=== PATIENT | male | born 1945 | race Caucasian/White ===

== ENCOUNTER 2016-05-22 14:48 | Inpatient (IN) | payer MEDICARE, OTHER ==
[~2016-05-22] VITALS: Ht 167.6 cm; Wt 85.4 kg
[~2016-05-22 14:48] MED LIST: /PANT40TA PO; CARD90TA PO; DUONSOL IN; GABA400C PO; LANO0.1211 OR; NEUR800T PO; NICO21DI26 EXT; PRED20TA PO; ULTR50TA PO; XARE20TA PO; [UNRECOGNIZED DRUG - OTHER] PO
[2016-05-22] MEDS ORDERED: LEVA12INH INH (15:06)
[2016-05-22] MEDS ORDERED: DELT1TAB PO (15:06)
[2016-05-22] MEDS ORDERED: LASI40TA PO (15:06)
[2016-05-22] MEDS ORDERED: FLEC10TA GT (15:06)
[2016-05-22] MEDS ORDERED: TRAM37.53 PO (15:06)
[2016-05-22] MEDS ORDERED: SPIR50TA2 PO (15:06)
[2016-05-22] MEDS ORDERED: FLEC50TA PO ×3 (15:06→18:25)
[2016-05-22] MEDS ORDERED: PRAD150C PO (15:06)
[2016-05-22] MEDS ORDERED: CEFT500T3 PO (15:06)
[2016-05-22] MEDS ORDERED: K-TA10TA2 PO (15:06)
[2016-05-22 16:32] LABS: BASO # 0.1 K/mm3 (0.0-0.2); BASO % 0.4 % (0.0-1.0); EOS # 0.1 K/mm3 (0.0-0.50); EOS % 0.3 % (0.0-3.0); LARGE UNSTAINED CELL # 0.8 K/mm3 (0.0-0.4); LARGE UNSTAINED CELL % 2.9 % (0.0-4.0); LYMPH # 1.7 K/mm3 (1.5-4.5); LYMPH % 3.1 % (24.0-44.0); MEAN CORPUSCULAR HEMOGLOBIN 31.7 pg (27.0-33.0); MEAN CORPUSCULAR HGB CONC 32.8 g/dl (32.0-36.5); MEAN CORPUSCULAR VOLUME 96.9 fl (80.0-96.0); MONO # 1.3 K/mm3 (0.0-0.8); MONO % 4.5 % (0.0-5.0); NEUTROPHILS # 24.9 K/mm3 (1.8-7.7); NEUTROPHILS % 88.8 % (36.0-66.0); PLATELET COUNT, AUTOMATED 262 k/mm3 (150-450); RED CELL DISTRIBUTION WIDTH 13.3 % (11.5-14.5)
[2016-05-22 16:58] LABS: ANION GAP 6 MEQ/L (8-16); BLOOD UREA NITROGEN 51 MG/DL (7-18); CALCIUM LEVEL 8.6 MG/DL (8.8-10.2); CARBON DIOXIDE LEVEL 27 MEQ/L (21-32); CHLORIDE LEVEL 99 MEQ/L (98-107); CREATININE FOR GFR 1.19 MG/DL (0.70-1.30); GLOMERULAR FILTRATION RATE > 60.0 (>42); GLUCOSE, FASTING 167 MG/DL (83-110); SODIUM LEVEL 132 MEQ/L (136-145)
[2016-05-22 17:06] LABS: POTASSIUM SERUM 6.1 MEQ/L (3.5-5.1)
[2016-05-22] MEDS ORDERED: NS 500 ML IV ONE (17:30)
[2016-05-22] MEDS ORDERED: SOD POLYSTYRENE SULFONATE SUSP 15 GM/60 ML UD PO ONE (17:30)
[2016-05-22] MEDS ORDERED: PRED10TA PO (18:22)
[2016-05-22] MEDS ORDERED: GABA-283 PO (18:22)
[2016-05-22] MEDS ORDERED: VITMTA PO (18:25)
[2016-05-22] MEDS ORDERED: IPRASOL4 INH (18:25)
[2016-05-22] MEDS ORDERED: ASPI1TAB PO (18:25)
--- NOTE | 2016-05-22 19:37 | HPEPDOC ---
General Date of Admission May 22, 2016 at 18:42 Chief Complaint The patient is a 71-year-old male admitted with a reason for visit of Weakness. Source: Patient History of Present Illness Mr Monzon is a 71-year-old male with past medical history of COPD and atrial flutter who presents to the emergency department today with a history of generalized weakness and numbness of both upper and lower extremities that came on acutely 4 days ago, the patient states that this morning he became so weak that he fell down onto his bottom. He denies experiencing LOC, chest pain, palpitations, shortness of breath. He denies being incontinent of urine or bowel during the event, denies history of seizure or stroke in the past. He states that his appetite has been normal, denies fever, muscle aches, chills. He does state that he thinks he's been holding fluid in his legs for the past few days of which she was given Lasix therapy for 2 days ago and has lost some weight as a result. He denies nausea or vomiting, denies diarrhea, constipation , blood in stool or urine, pain with urination or defecation. He follows with Dr. Christine in [place] for his atrial flutter. His flecainide medical therapy was recently increased one week ago. Patient also states that he thinks he had some dark stool 2 days ago. Home Medications Scheduled Aspirin (Aspirin 81) 81 Mg Tab 81 MG PO DAILY (Reported) Cefuroxime Axetil (Ceftin) 500 Mg Tab 500 MG PO BID (Reported) FILLED 05/19/16 FOR 7 DAYS Dabigatran Etexilate (Pradaxa) 150 Mg Cap 150 MG PO BID (Reported) Flecainide Acetate (Flecainide Acetate) 50 Mg Tab 100 MG PO QAM (Reported) Flecainide Acetate (Flecainide Acetate) 50 Mg Tab 150 MG PO QHS (Reported) Furosemide (Lasix) 40 Mg Tab 40 MG PO BID (Reported) Gabapentin (Gabapentin) 400 Mg Cap 800 MG PO TID (Reported) Multivitamins *[facility] STOCKED* (Thera M Plus *[facility] STOCKED*) 1 Tab Tab 1 TAB PO DAILY (Reported) Potassium Chloride (K-Tab) 10 Meq Tab 10 MEQ PO DAILY (Reported) Prednisone (Prednisone) 10 Mg Tab 10 MG PO DAILY (Reported) 2 MORE DAYS OF TAPER DOSE OF 10MG LEFT THEN STOP Spironolactone (Spironolactone) 50 Mg Tab 50 MG PO BID (Reported) Tramadol/Apap (Tramadol Hydrochloride/AC 37.5-325 mg) 1 Tab Tab 1 TAB PO TID ( Reported) Scheduled PRN Albuterol/Ipratropium (Ipratropium [place]/Albut 0.5-2.5 (3) mg/3Ml) 1 Matheus Matheus 1 MATHEUS INH QID PRN PRN SHORTNESS OF BREATH (Reported) Allergies Coded Allergies: No Known Drug Allergy (Verified Allergy, Unknown, 05/22/16) Zolpidem (Verified Adverse Reaction, Intermediate, CONFUSION/SLEEPWALKING , 05/16/12) Past Medical History Medical History COPD Atrial flutter Surgical History Left knee surgery Family History Hypertension, father had heart attack Social History * Smoker: former Smoker (the patient states that he quit smoking 5 years prior , before this he smoked 1.5 packs per day for 40 years) Alcohol: Denies Drugs: denies The patient lives at home with his , 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 Review of Symptoms Constitutional: Reports: Fatigue, Malaise, Weakness, Weight Loss (the pt thinks he lost weight due to the lasix therapy he was recently started on due to b/l leg edema), Denies: Chills, Fever, Night Sweats Eyes: Denies: Conjunctivae inflammation, Eyelid inflammation, Pain, Redness, Vision change ENT: Denies: Head Aches Skin: Denies: Lesions, Rash Pulmonary: Reports: Cough (pt states he does have a cough and sometimes it has yellow tinged sputum), Denies: Dyspnea Cardiovascular: Reports: Edema (+1 b/l LE), Denies: Chest Pain, Lt Headedness, Orthopnea, Palpitations, Paroxysmal Noc. Dyspnea Gastrointestinal: Denies: Abdominal Pain, Constipation, Diarrhea, Nausea, Vomiting Genitourinary: Denies: Dysuria, Frequency Neurological: Reports: Numbness, Weakness, Denies: Change in speech, Incoordination Psych: Reports: Mood Normal Physical Examination General Exam: Positive: Alert, Cooperative, No Acute Distress Eye Exam: Positive: Conjunctiva & lids normal, EOMI, Negative: Ptosis, Sclera icteric ENT Exam: Positive: Atraumatic, Mucous membr. moist/pink, Nares Patent, Pharynx Normal, Tongue Midline, Negative: Pharyngeal Edema Neck Exam: Positive: Supple Chest Exam: Positive: Other (crackles in RUL and RLL), Wheezing (end expiratory wheeze RUL), Negative: Diminished, Rales, Rhonchi Heart Exam: Positive: Normal S1, Normal S2, Other (a flutter), Tachycardic, Negative: Gallops, Murmurs, Rate Normal Telemetry: Positive: Other Telemetry: (a flutter rate 125-132) Abdomen Exam: Positive: Normal bowel sounds, Soft, Negative: BS Hyperactive, BS Hypoactive, Hepatospenomegaly, Tenderness Extremity Exam: Positive: Edema (+1 b/l LE), Normal pulses, Swelling, Negative: Clubbing, Cyanosis, Tenderness Skin Exam: Positive: Nl turgor and temperature Psych Exam: Positive: Mental status NL, Oriented x 3, Negative: Anxiety Vital Signs Vital Signs Date Time Temp Pulse Resp B/P Pulse Ox O2 Delivery O2 Flow Rate FiO2 05/22/16 18:47 97.3 128 16 95 2 05/22/16 17:31 149/92 05/22/16 15:48 Nasal Cannula Laboratory Data Labs 24H Laboratory Tests 2 05/22/16 16:23: Anion Gap 6L, B-Type Natriuretic Peptide 6.0, White Blood Count 28.0H, Red Blood Count 5.07, Hemoglobin 16.1, Hematocrit 49.2, Mean Corpuscular Volume 96.9H, Mean Corpuscular Hemoglobin 31.7, Mean Corpuscular Hemoglobin Concent 32.8, Red Cell Distribution Width 13.3, Platelet Count 262, Neutrophils (%) ( Auto) 88.8H, Lymphocytes (%) (Auto) 3.1L, Monocytes (%) (Auto) 4.5, Eosinophils (%) (Auto) 0.3, Basophils (%) (Auto) 0.4, Neutrophils # (Auto) 24.9H, Lymphocytes # (Auto) 1.7, Monocytes # (Auto) 1.3H, Eosinophils # (Auto) 0.1, Basophils # (Auto) 0.1, Blood Urea Nitrogen 51H, Creatinine 1.19, Sodium Level 132L, Potassium Level 6.1*H, Chloride Level 99, Carbon Dioxide Level 27, Calcium Level 8.6L, Total Creatine Kinase 129, Creatine Kinase MB 4.7H, Creatine Kinase MB Relative Index 3.64, Glomerular Filtration Rate > 60.0, Large Unclassified Cells # 0.8H, Large Unclassified Cells % 2.9, Thyroid Stimulating Hormone (TSH) 1.560, Troponin I < 0.02 CBC/BMP Laboratory Tests 05/22/16 16:23 Calcium Level 8.6 L, Total Creatine Kinase 129, Red Blood Count 5.07, Mean Corpuscular Volume 96.9 H, Mean Corpuscular Hemoglobin 31.7, Mean Corpuscular Hemoglobin Concent 32.8, Red Cell Distribution Width 13.3, Neutrophils (%) (Auto ) 88.8 H, Lymphocytes (%) (Auto) 3.1 L, Monocytes (%) (Auto) 4.5, Eosinophils (% ) (Auto) 0.3, Basophils (%) (Auto) 0.4, Neutrophils # (Auto) 24.9 H, Lymphocytes # (Auto) 1.7, Monocytes # (Auto) 1.3 H, Eosinophils # (Auto) 0.1, Basophils # (Auto) 0.1 Problems (1) COPD (chronic obstructive pulmonary disease) Status: Acute Response to Treatment: Stable Problem Text: will not continue pts home albuterol in light of tachycardia on presentation O2 to titrate >90% continue to monitor o2 saturation at 95 % on 2 L patient wears 2 L O2 at home normally (2) Dehydration Status: Acute Response to Treatment: Stable Problem Text: bun/creatine 51/1.19 will give 20 mg lasix BID for edema in LE and crackles on physical exam continue to monitor (3) Atrial flutter with rapid ventricular response Status: Acute Response to Treatment: Stable Problem Text: 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 scientist head of precision targeting spoken to, recommended d/c flecainide therapy despite rate in 120-130's cardioversion for next week admitted to PCU continue to monitor Repeat ECHO pending last ECHO in 2012 EF was normal first set of troponins negative, will trend (4) Hyperkalemia Status: Acute Response to Treatment: Stable Problem Text: 6.1 on admission 30 of Kayexalate given in ED continue to monitor repeat K at 2000 (5) Weakness Status: Acute Response to Treatment: Stable Problem Text: likely 2/2 dehydration from lasix therapy pt states on exam he still feels weak but is improved since presentation ECHO pending continue to monitor will fluid restrict 2 L in light of possible CHF picture strict I&O's and daily weights for possible CHF picture EKG in ED showed a flutter will admit to telemetry unit and continue to monitor (6) Blood in stool Status: Acute Response to Treatment: Stable Problem Text: stable h/h 16.1/49.2 occult blood pending continue to monitor (7) DVT prophylaxis Status: Acute Problem Text: SCDS and TEDS Plan / VTE VTE Prophylaxis Ordered?: Yes (scds and teds) GME ATTESTATION GME ATTESTATION My preceptor for this patient encounter was physically present in the building during the encounter and was fully available. As needed, all aspects of the patient interview, examination, medical decision making process, and medical care plan development were reviewed and approved by the preceptor. Preceptor is aware and concurs with the plan as stated in the body of this note and will attest to such by his/her cosignature. THOMAS PRADHAN DO May 22, 2016 19:37
[2016-05-22 20:10] LABS: POTASSIUM SERUM 5.7 MEQ/L (3.5-5.1)
[2016-05-23 00:20] VITALS: BP 128/72
[2016-05-23] MEDS: GABAPENTIN 400 MG CAP PO SCH ×4 (00:57→21:03)
[2016-05-23] MEDS: DABIGATRAN ETEXILATE 75 MG CAP (PRADAXA) PO SCH ×3 (00:58→21:02)
[2016-05-23] MEDS: ULTRACET TAB PO SCH ×4 (01:16→21:07)
[2016-05-23 04:19] VITALS: BP 123/70
[2016-05-23 05:46] LABS: BASO # 0.1 K/mm3 (0.0-0.2); BASO % 0.4 % (0.0-1.0); EOS # 0.1 K/mm3 (0.0-0.50); EOS % 0.7 % (0.0-3.0); LARGE UNSTAINED CELL # 0.9 K/mm3 (0.0-0.4); LARGE UNSTAINED CELL % 5.6 % (0.0-4.0); LYMPH # 1.7 K/mm3 (1.5-4.5); LYMPH % 10.4 % (24.0-44.0); MEAN CORPUSCULAR HEMOGLOBIN 31.1 pg (27.0-33.0); MEAN CORPUSCULAR HGB CONC 31.9 g/dl (32.0-36.5); MEAN CORPUSCULAR VOLUME 97.4 fl (80.0-96.0); MONO # 1.1 K/mm3 (0.0-0.8); MONO % 6.4 % (0.0-5.0); NEUTROPHILS # 12.8 K/mm3 (1.8-7.7); NEUTROPHILS % 76.5 % (36.0-66.0); PLATELET COUNT, AUTOMATED 200 k/mm3 (150-450); RED CELL DISTRIBUTION WIDTH 13.4 % (11.5-14.5); WHITE BLOOD COUNT 16.7 K/mm3 (4.0-10.0)
[2016-05-23 06:19] LABS: ANION GAP 5 MEQ/L (8-16); BLOOD UREA NITROGEN 40 MG/DL (7-18); CARBON DIOXIDE LEVEL 28 MEQ/L (21-32); CHLORIDE LEVEL 101 MEQ/L (98-107); CREATININE FOR GFR 0.94 MG/DL (0.70-1.30); GLOMERULAR FILTRATION RATE > 60.0 (>42); GLUCOSE, FASTING 126 MG/DL (83-110); POTASSIUM SERUM 4.7 MEQ/L (3.5-5.1); SODIUM LEVEL 134 MEQ/L (136-145)
[2016-05-23 08:00] VITALS: BP 126/70
--- NOTE | 2016-05-23 08:26 | REP ---
Chest pain. COMPARISON: 04/23/2012 FINDINGS: The technique utilized in obtaining the radiograph has magnified the cardiac silhouette and accentuated the interstitial markings. The superior mediastinal structures are midline. The cardiac silhouette is unremarkable in size, shape, and position. The diaphragmatic surfaces of the lungs are regular, and the costophrenic angles are clear. The pulmonary venegas are clear. The imaged osseous structures are intact. IMPRESSION: There is no acute cardiopulmonary disease. Signed by Levy Garner DO 05/23/2016 08:51 A
[2016-05-23] MEDS ORDERED: predniSONE 10 MG TAB PO SCH (09:00)
--- NOTE | 2016-05-23 09:21 | ECGEPIP ---
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
[2016-05-23] MEDS: FUROSEMIDE 20 MG TAB PO SCH ×2 (09:56→17:12)
[2016-05-23] MEDS: ASPIRIN 81 MG ENTERIC TAB PO SCH (09:56)
[2016-05-23] MEDS ORDERED: LEVALBUTEROL 1.25 MG/0.5 ML CONCENTRATE NEB INH PRN (11:00)
[2016-05-23 12:00] VITALS: BP 128/77
[2016-05-23] MEDS ORDERED: DIGOXIN INJ 0.5 MG/2 ML AMP (J1160) IV SCH (12:00)
[2016-05-23] MEDS: BISOPROLOL FUM 2.5 MG PER 1/2TAB PO SCH ×2 (12:26→21:03)
[2016-05-23] MEDS: predniSONE 20 MG TAB PO SCH (12:27)
[2016-05-23 16:00] VITALS: BP 149/65
[2016-05-23 20:00] VITALS: BP 119/67
[2016-05-23] MEDS ORDERED: SLF 3 ML SYR IV PRN (21:15)
[2016-05-23] MEDS: SLF 3 ML SYR IV SCH (22:00)
[2016-05-24] VITALS (10 sets, daily range): BP systolic 92–146; BP diastolic 60–81
[2016-05-24 05:53] LABS: BASO # 0.1 K/mm3 (0.0-0.2); BASO % 0.3 % (0.0-1.0); EOS # 0.1 K/mm3 (0.0-0.50); EOS % 0.3 % (0.0-3.0); LARGE UNSTAINED CELL # 0.7 K/mm3 (0.0-0.4); LARGE UNSTAINED CELL % 2.5 % (0.0-4.0); LYMPH # 2.7 K/mm3 (1.5-4.5); LYMPH % 7.9 % (24.0-44.0); MEAN CORPUSCULAR HGB CONC 33.1 g/dl (32.0-36.5); MEAN CORPUSCULAR VOLUME 96.7 fl (80.0-96.0); MONO # 1.4 K/mm3 (0.0-0.8); MONO % 5.4 % (0.0-5.0); NEUTROPHILS # 21.9 K/mm3 (1.8-7.7); NEUTROPHILS % 83.6 % (36.0-66.0); PLATELET COUNT, AUTOMATED 255 k/mm3 (150-450); RED CELL DISTRIBUTION WIDTH 13.2 % (11.5-14.5); WHITE BLOOD COUNT 26.2 K/mm3 (4.0-10.0)
[2016-05-24] MEDS: SLF 3 ML SYR IV SCH ×4 (06:00→21:06)
[2016-05-24 06:19] LABS: ANION GAP 3 MEQ/L (8-16); BLOOD UREA NITROGEN 38 MG/DL (7-18); CALCIUM LEVEL 8.9 MG/DL (8.8-10.2); CARBON DIOXIDE LEVEL 33 MEQ/L (21-32); CHLORIDE LEVEL 100 MEQ/L (98-107); CREATININE FOR GFR 0.95 MG/DL (0.70-1.30); GLOMERULAR FILTRATION RATE > 60.0 (>42); GLUCOSE, FASTING 138 MG/DL (83-110); POTASSIUM SERUM 4.9 MEQ/L (3.5-5.1); SODIUM LEVEL 136 MEQ/L (136-145)
[2016-05-24] MEDS: FUROSEMIDE 20 MG TAB PO SCH ×2 (09:21→17:42)
[2016-05-24] MEDS: GABAPENTIN 400 MG CAP PO SCH ×3 (09:21→21:04)
[2016-05-24] MEDS: ASPIRIN 81 MG ENTERIC TAB PO SCH (09:21)
[2016-05-24] MEDS: BISOPROLOL FUM 2.5 MG PER 1/2TAB PO SCH ×2 (09:21→21:05)
[2016-05-24] MEDS: predniSONE 20 MG TAB PO SCH (09:22)
[2016-05-24] MEDS: DABIGATRAN ETEXILATE 75 MG CAP (PRADAXA) PO SCH ×2 (09:22→21:05)
[2016-05-24] MEDS: ULTRACET TAB PO SCH ×3 (09:33→21:06)
[2016-05-24] MEDS ORDERED: LIDOCAINE 2% INJ 100 MG/5 ML SYRINGE As Ordered ONE (13:03)
[2016-05-24] MEDS ORDERED: PROPOFOL 200 MG/20 ML VIAL As Ordered ONE (13:03)
--- NOTE | 2016-05-24 14:22 | RO ---
DATE OF PROCEDURE: 05/24/2016 INDICATION/PREPROCEDURE DIAGNOSIS: Typical atrial flutter. POSTPROCEDURE DIAGNOSIS: Sinus tachycardia. PROCEDURE PERFORMED: Electrical cardioversion 150 joules times one. SURGEON: Dr. Emmanuel Martinez TAR CHASER: None. ANESTHESIA: Monitored anesthesia care administered by CHUY Link (Propofol). COMPLICATIONS: None. FINDINGS: Successful cardioversion with pentecostalism of sinus tachycardia with 150 joules times one. PROCEDURE DESCRIPTION: After receiving adequate amounts of sedation per anesthesia, the patient received a single 150 joule biphasic cardioversion shock, which successfully returned sinus mechanism with sinus tachycardia. No excessive pauses were observed with the conversion. The paced/defibrillation patches were applied in reverse polarity at the start of the procedure, such that the sternal patch was placed over the left posterior hemithorax and apical patch was placed over the sternum. cc: Dr. Emmanuel Richadrson Emmett Dr. Emmanuel Lainez
--- NOTE | 2016-05-24 20:40 | IPN ---
DATE OF VISIT: 05/23/2016 Mr. Monzon is feeling better today. He has still been tachycardic overnight but he has no sensation of his heart beating quickly. He has been up and walking around actually, which he was unable to do prior to his arrival. He is tolerating diet. Family is at bedside including two daughters and a son-in-law. PHYSICAL EXAMINATION: VITAL SIGNS: Temperature 97.2, pulse 71, respirations 18, blood pressure 126/70, 96% on room air. Intake and output notable for a positive fluid balance of 1220 with 85.2 kg, body mass index is 30.3. GENERAL: He is awake, appropriately interactive, pleasantly conversant, speaking in complete sentences. No accessory muscle use. HEART: Rapid rhythm, regular rate. LUNGS: Breathing is symmetrically diminished. Inspiratory to expiratory (I:E) ratio is 1:3. There are no wheezes, rales or rhonchi. ABDOMEN: No sacral edema. Abdomen is soft, doughy and nontender. EXTREMITIES: There is 1+ bilateral lower extremity edema. Radial pulses 2+. Capillary refill is less than two seconds. LABORATORY DATA: White cell count 16.7, hemoglobin 15.2, platelets of 200. Sodium 134, BUN 40, creatinine 0.9, troponin negative times two. ASSESSMENT: This is a 71-year-old with atrial fibrillation and rapid ventricular rate (RVR). PLAN: 1. Atrial fibrillation with RVR. The case was again discussed in general with covering riveter. We will start a low dose of cardiac selective beta ro and digoxin. We will plan to followup with Dr. Christine tomorrow. 2. The patient has chronic pulmonary obstructive disease (COPD). Did receive a high dose of steroid yesterday. Will continue with increased dose of steroids today as he did recover quickly without any real change in heart rate. He is not actively wheezing and believe beta ro is reasonably safe. At this point will also make available to him low dose of Xopenex which perhaps is more respiratory selective. 3. Dehydration with decreased dose of Lasix. At this point I believe fluid build-up in his lower extremities is most likely related to increased rate on exam. He is improved today. Will continue to monitor clinically. 4. Patient has hyperkalemia at presentation which has resolved with Kayexalate and improving renal function. 5. The patient had weakness at presentation which has resolved. I have requested the patient not be too active but I have given him permission to get to the bathroom or to a chair with assistance. I certainly do not want him walking in the hallway. 6. The patient has Heme occult positive stool. 7. The patient has appropriate deep venous thrombosis (DVT) prophylaxis which is mechanical and noted during my exam.
--- NOTE | 2016-05-24 20:50 | IPN ---
DATE: 05/24/2016 Mr. Monzon was feeling about the same this morning. No complaints of pain, chest pain, or particularly short of breath. He has been out of bed. He did request nebulizer therapy this morning. Temperature 97.6, pulse 150, respiratory rate 18, blood pressure 110/68, 96% on 2 liters. Intake and output notable for a positive fluid balance of 90. He is awake, appropriately interactive, pleasantly conversant. Breathing is symmetrical, diminished. Heart is tachycardic. Radial pulses 2+, capillary refill is less than 2 seconds. Abdomen is soft, doughy, nontender. He generally appears well. White cell count is 26.2, hemoglobin 15.2, and platelets of 255. Sodium is 136, BUN 38, creatinine 0.95. Stool occult blood (cut off). ASSESSMENT: This is a 71-year-old admitted with what is likely a chronic obstructive pulmonary disease (COPD) exacerbation, acute, in the setting of atrial fibrillation and rapid ventricular response (RVR), which is chronic. PLAN: 1. For COPD, the patient is much improved from that standpoint. Breathing is much easier. He is on a short course of steroids, which will need to be tapered. 2. Patient presented with dehydration, which has improved as well. 3. Patient has atrial flutter with rapid ventricular response. Plan is for cardioversion today, as he had failed outpatient therapy. Dr. Martinez has agreed to cardiovert the patient. Dr. Christine requested a repeat echocardiogram, which has been ordered. 4. Patient has leukocytosis, which could be made worse with the use of steroids, but he is having multiple stools. Will send stool for Clostridium (C) difficile. On physical exam, the patient appears quite well. Hemoccult is positive. He does not seem to have melena. 5. Patient had hyperkalemia at the time presentation, which has resolved. 6. Patient has appropriate mechanical deep vein thrombosis (DVT) prophylaxis and is also on Pradaxa. I would anticipate discharge in the next 24 hours, after we verify the patient remains in sinus rhythm after his cardioversion.
[2016-05-25 04:31] VITALS: BP 120/65
[2016-05-25 05:28] LABS: BASO % 0.3 % (0.0-1.0); EOS # 0.1 K/mm3 (0.0-0.50); EOS % 0.5 % (0.0-3.0); LARGE UNSTAINED CELL # 0.6 K/mm3 (0.0-0.4); LARGE UNSTAINED CELL % 3.3 % (0.0-4.0); LYMPH # 2.9 K/mm3 (1.5-4.5); LYMPH % 13.3 % (24.0-44.0); MEAN CORPUSCULAR HEMOGLOBIN 31.5 pg (27.0-33.0); MEAN CORPUSCULAR VOLUME 95.6 fl (80.0-96.0); MONO # 1.1 K/mm3 (0.0-0.8); MONO % 6.2 % (0.0-5.0); NEUTROPHILS # 13.4 K/mm3 (1.8-7.7); NEUTROPHILS % 76.4 % (36.0-66.0); PLATELET COUNT, AUTOMATED 243 k/mm3 (150-450); RED CELL DISTRIBUTION WIDTH 13.3 % (11.5-14.5); WHITE BLOOD COUNT 17.5 K/mm3 (4.0-10.0)
[2016-05-25 05:42] LABS: ANION GAP 4 MEQ/L (8-16); BLOOD UREA NITROGEN 41 MG/DL (7-18); CARBON DIOXIDE LEVEL 32 MEQ/L (21-32); CHLORIDE LEVEL 99 MEQ/L (98-107); CREATININE FOR GFR 1.01 MG/DL (0.70-1.30); GLOMERULAR FILTRATION RATE > 60.0 (>42); GLUCOSE, FASTING 105 MG/DL (83-110); POTASSIUM SERUM 4.7 MEQ/L (3.5-5.1); SODIUM LEVEL 135 MEQ/L (136-145)
[2016-05-25] MEDS: SLF 3 ML SYR IV SCH (06:00)
[2016-05-25 08:00] VITALS: BP 134/72
[2016-05-25] MEDS ORDERED: IPRATROPIUM 0.02% SOLN 0.5MG/2.5 ML NEB INH SCH (08:00)
[2016-05-25] MEDS ORDERED: LEVALBUTEROL 1.25 MG/0.5 ML CONCENTRATE NEB INH SCH (08:00)
[2016-05-25 08:21] VITALS: BP 120/65
[2016-05-25] MEDS: predniSONE 20 MG TAB PO SCH (08:21)
[2016-05-25] MEDS: BISOPROLOL FUM 2.5 MG PER 1/2TAB PO SCH (08:21)
[2016-05-25] MEDS: ASPIRIN 81 MG ENTERIC TAB PO SCH (08:21)
[2016-05-25] MEDS: GABAPENTIN 400 MG CAP PO SCH (08:22)
[2016-05-25] MEDS: DABIGATRAN ETEXILATE 75 MG CAP (PRADAXA) PO SCH (08:22)
[2016-05-25] MEDS: ULTRACET TAB PO SCH (08:27)
[2016-05-25 08:35] VITALS: O2SAT 96
[2016-05-25] MEDS ORDERED: PRED10TA PO (08:36)
[2016-05-25] MEDS ORDERED: BISO5TAB5 PO (08:36)
[2016-05-25] MEDS ORDERED: FURO20TA2 PO (08:36)
--- NOTE | 2016-05-25 08:39 | ECGEPIP ---
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
[2016-05-25 08:57] VITALS: O2SAT 94
[2016-05-25] MEDS ORDERED: FUROSEMIDE 20 MG TAB PO SCH (09:00)
--- NOTE | 2016-05-25 18:40 | IPN ---
DATE: 05/25/2016 Mr. Zach Monzon was seen earlier this morning, he was sitting up in bed in no acute distress at rest. He is hospitalist was at bed side. He was initially seen by Dr. Martinez after his admission on 05/22/2016 with shortness of breath, generalized weakness, atrial flutter with rapid ventricular rate. He was mechanically cardioverted on 05/24/[address] Martinez and he remains in normal sinus rhythm. He is now feeling much better, and his shortness of breath has improved significantly. He is getting some of his strength back. He is looking forward to go back to work maybe within 1-2 weeks. He denies any chest pain, palpitations, orthopnea or paroxysmal nocturnal dyspnea (PND). He denies any bleeding. He denies any dizziness. He has a cough but no hemoptysis or fever. There is no focal manifestation. PHYSICAL EXAMINATION: Patient is alert and oriented, in no acute distress at rest and his vital signs when I saw him earlier today reveal a blood pressure of 134/72 with a pulse of 94, respirations 18 and his maximum temperature was 96.7 degrees Fahrenheit with an oxygen saturation of 94% in room air. Examination of the head is normocephalic, atraumatic. Neck is supple, no jugular venous distention or carotid bruits. The lungs do not reveal any wheezing or crackles but prolonged expiratory phase. The heart examination reveals normal S1 and S2 without gallops. The PMI is not displaced. There is no rub. I could not appreciate any murmurs. Abdomen is soft, obese and non-tender. Extremities reveal only trace bilateral ankle edema. No cyanosis or clubbing. Neurological examination grossly is negative for focal deficit. LABORATORY DATA: A CBC done today revealed a WBC of 17.5 and on admission it was 28.0. Hemoglobin is 14.2, hematocrit 42.9, and platelet 2423,000. BMP done today reveals a sodium of 135, potassium 4.7, chloride 99, CO2 22, BUN 41, creatinine 1.01, glomerular filtration rate (GFR) more than 60. Fasting glucose 105 and calcium 8.8. Telemetry revealed normal sinus rhythm. Electrocardiogram done yesterday 05/24/2016 at 14:02:31 revealed normal rhythm, tachycardiac at 110 beats per minute, <<3:10>> complexes. Prior electrocardiogram (ECG) done 05/22/2016, patient was in atrial flutter. Chest x-ray on admission 05/22/2016 revealed no acute disease process. Mr. Zach Monzon is stable from a cardiac point of view, status post mechanical cardioversion for atrial flutter and he remains in normal sinus rhythm. He is also status post hyperkalemic probably most likely medication induced. His medications were reviewed and he will be discharged on the same medications, but his furosemide was decreased to 20 mg by mouth daily. This was discussed with his hospitalist and patient will come to the office in about 1-2 weeks and an appointment will be made for him. He will also follow with his primary physician later this week. I am concerned about the newly started beta ro/Zebeta in the presence of severe underlying chronic obstructive pulmonary disease/emphysema, he will be monitored and we will see how he reacts. He is no longer on the Cardizem and also is no longer on the spironolactone because that was a contributing factor to his hyperkalemia. He is also no longer on the flecainide. We have discussed about further treatment for his atrial flutter such as ablation and at this time, he wants to think about it. We will continue to discuss that as outpatient. Upon discharge, his medications, he is on furosemide 20 mg by mouth daily, gabapentin 800 mg by mouth three times a day, dabigatran/Pradaxa 150 mg by mouth twice a day, bisoprolol/Zebeta 2.5 mg by mouth twice a day, Prednisone 40 mg by mouth daily, aspirin 81 mg by mouth daily, Xopenex 0.63 mg four times a day per inhalation as needed for shortness of breath and wheezing, Atrovent 0.02% 0.5 mg every 6 hours. It was a pleasure to participate in the care of Mr. Zach Monzon for his underlying cardiac condition. As mentioned above, he has been stable and he may be discharged home for follow up as outpatient. Not mentioned above, he had an echocardiogram yesterday and it revealed a normal globular left ventricular function, no significant valvular heart disease.
--- NOTE | 2016-05-27 08:34 | DSES ---
DATE OF ADMISSION: 05/22/2016 DATE OF DISCHARGE: 05/25/2016 PRIMARY CARE PROVIDER: Dr. Khari Keenan. NAIL MACHINE OPERATOR: Dr. Christine. DISCHARGE DIAGNOSES: Atrial flutter status post mechanical cardioversion Status post hyperkalemia which was thought the be medication and dehydration induced. Dehydration. Chronic obstructive pulmonary disease (COPD) exacerbation. Acute respiratory failure with hypoxia which has resolved. Metabolic syndrome with peripheral neuropathy. Chronic low back pain. Steroid induced leukocytosis. DISCHARGE MEDICATIONS: - bisoprolol 2.5 mg by mouth twice daily - Lasix 20 mg by mouth daily - prednisone tapering course - albuterol ipratropium nebulizer solution one solution four times daily as needed - aspirin 81 mg daily - Pradaxa 150 mg by mouth twice daily - gabapentin 800 mg by mouth three times daily - multivitamins one tablet daily - tramadol/acetaminophen 37.5/325 one tablet by mouth three times daily HOSPITAL COURSE: This is a 71-year-old male who presented to the hospital with severe generalized weakness and numbness of both the upper and lower extremities for about 3-4 days and inability to ambulate on the day of admission and fall on his bottom. Patient was diagnosed with atrial flutter for about 3 weeks ago and was started on flecainide. The flecainide dosage was increased a week ago after which patient started feeling weak and so came into the hospital on the day of admission status post fall and inability to ambulate. Patient was found to be hypokalemic with a potassium of 6.1 also. Patient was found to be in persistent atrial flutter. He was also thought to be dehydrated. Patient's diuretics were stopped. Flecainide and spironolactone were stopped as his hyperkalemia was thought to be related to medication. Patient started feeling a little better. Subsequently patient went underwent mechanical cardioversion on 05/24/2016 with resolution of most of his symptoms. He was also though to have mild chronic obstructive pulmonary disease (COPD) exacerbation and acute respiratory failure with hypoxia so was continued on intermittent nebulizers and prednisone. After cardioversion, patient's oxygen requirement decreased and he started feeling significantly better. He was not hypoxic at rest. On the day of admission, he was ambulated and it was seen that his oxygen saturation did not drop. His oxygen saturation at rest was 96% on room air and after ambulation, it was 94% on room air so it was felt that his hypoxia and acute respiratory failure has resolved and patient does not require any further home oxygen. Patient was instructed about the same. Patient does have home oxygen given to him from [facility] about a week ago when he was discharged from there. At present, the patient is feeling much better. Vitals are stable and patient is functioning at his baseline and is going to be discharged home. PHYSICAL EXAMINATION: Vital signs: Temperature 96.7, pulse 89, respiratory rate 20, blood pressure 120/65, pulse oximetry 94% on room air. General: Patient awake, alert, oriented times three. Sitting up in bed in no acute distress. HEENT: Normocephalic, atraumatic. Moist mucous membranes. Anicteric eyes. Chest: Mild wheezing on auscultation but good air entry. Cardiovascular: S1, S2. Irregular. No rub, murmur or gallop. Abdomen: Obese, soft, nontender. Bowel sounds present. Extremities: No edema. LABORATORY DATA: WBC 17.5, hemoglobin 14.2, platelets 243. Sodium 135, potassium 4.7, chloride 99, bicarbonate 32, BUN 41, creatinine 1. Glucose 105, calcium 8. Cardiac enzymes negative. BNP was 6. TSH 1.56. Chest x-ray: There was no acute pulmonary disease. DISPOSITION: Patient is discharged home in stable condition. DISCHARGE INSTRUCTIONS: Patient is to followup with Dr. Christine in 1-2 weeks. Patient to followup with primary care provider in 1 week. Activity as tolerated. Carbohydrate consistent diet. MTDD
--- NOTE | 2016-05-27 19:41 | ECHO ---
DATE OF PROCEDURE: 05/24/2016 REFERRING PROVIDER: Dr. Emmanuel Lainez PATIENT LOCATION: Room 3215. REASON FOR THE ECHOCARDIOGRAM: Shortness of breath, pedal edema, atrial flutter. 2D MEASUREMENTS: IVS: 1.4 cm LV: 3.1 cm LVPW: 1.3 cm LA: 3.6 cm Aorta: 3.1 cm IVC: 1.26 cm DOPPLER MEASUREMENTS: Peak velocity across the aortic valve: 1.1 m/s Peak velocity across the LVOT: 0.8 m/s Mitral E: 0.82 Mitral A: 1.1 with a ratio of 0.7 Maximum tricuspid valve velocity: 2.1 m/s 2D COMMENTS: 1. Mildly increased left ventricular wall thickness with normal left ventricular size and a normal global left ventricular systolic function estimated 65-70%. 2. Both the left atrium and the right atrium appeared to be normal in size. The right ventricle was normal in size and function. 3. The atrial septum appeared to be normal without evidence of defect or shunt. 4. Normal aortic root. 5. Trace to small pericardial effusion noted mainly anteriorly; no evidence of cardiac tamponade. 6. Mildly calcified aortic valve with normal leaflet excursion. Mildly calcified mitral annulus with normal anterior mitral valve leaflet motion. Normal tricuspid valve. The pulmonic valve and proximal pulmonary artery branches were not well visualized. 7. The inferior venal cava was normal in size; central venous pressure is most likely normal. DOPPLER: It detects trace aortic regurgitation, mild mitral regurgitation, and mild tricuspid regurgitation. The calculated pulmonary artery systolic pressure was normal, less than 30 mmHg. Abnormal relaxation pattern was noted across the mitral valve leaflets as well as the mitral valve annulus, consistent with a delayed relaxation. IMPRESSION: 1. Normal global left ventricular systolic function with mild concentric left ventricular hypertrophy. There were features of left ventricular diastolic dysfunction, grade 1. 2. Aortic valve sclerosis with trace aortic regurgitation but no aortic stenosis. 3. Mitral annulus calcification with mild mitral regurgitation. 4. Mild tricuspid regurgitation with a normal calculated pulmonary artery systolic pressure. 5. Trace to small pericardial effusion noted; no evidence of cardiac tamponade.
== END 2016-05-25 10:22 | disposition home or self-care (01) | DRG 309 ==
LOC: M ED 15:34 → M ED INP 18:42 → M PCU 05-23 00:25
PROVIDERS: ADMIT Internal Medicine; ATTEND Internal Medicine Nephrology
PROC: 5A2204Z Restoration of Cardiac Rhythm, Single (ICD-10-PCS; principal; 2016-05-24 13:00)
DX: I48.3 Typical atrial flutter (principal); J44.1 Chronic obstructive pulmonary disease with (acute) exacerbation; I48.2 Chronic atrial fibrillation; E86.0 Dehydration; M54.5 Low back pain; E87.5 Hyperkalemia; R53.1 Weakness; E66.9 Obesity, unspecified; Z79.82 Long term (current) use of aspirin; Z79.52 Long term (current) use of systemic steroids; Z79.899 Other long term (current) drug therapy; Z87.891 Personal history of nicotine dependence; Z68.30 Body mass index [BMI] 30.0-30.9, adult

== ENCOUNTER 2016-06-10 18:43 | Inpatient (IN) | payer MEDICARE, OTHER ==
[~2016-06-10] VITALS: Ht 170.2 cm; Wt 90.8 kg
[2016-06-10] VITALS (27 sets, daily range): BP systolic 96–135; BP diastolic 57–84
[~2016-06-10 18:43] MED LIST changes: +ASPI1TAB PO; +BISO5TAB5 PO; +CEFT500T3 PO; +DELT1TAB PO; +FLEC10TA GT; +FLEC50TA PO; +FURO20TA2 PO; +GABA-283 PO; +IPRASOL4 INH; +K-TA10TA2 PO; +LASI40TA PO; +LEVA12INH INH; +PRAD150C PO; +PRED10TA PO; +SPIR50TA2 PO; +TRAM37.53 PO; +VITMTA PO
[2016-06-10] MEDS ORDERED: AMIODARONE HCL 150 MG in APPROPRIATE DILUENT 1 EA IV STA (20:35)
[2016-06-10] MEDS ORDERED: AMIODARONE HCL 150 MG/100 ML PREMIXED BAG (NEXTERONE) As Ordered ONE (20:37)
[2016-06-10] MEDS ORDERED: LIDOCAINE 2% INJ 100 MG/5 ML SDV (FOR ANES.) As Ordered ONE (21:07)
[2016-06-10] MEDS ORDERED: PROPOFOL 200 MG/20 ML VIAL As Ordered ONE (21:07)
[2016-06-10] MEDS ORDERED: SUCCINYLCHOLINE 100 MG/5 ML SYRINGE (J0330) As Ordered ONE (21:07)
[2016-06-10] MEDS ORDERED: SUCCINYLCHOLINE INJ 200 MG/10 ML VIAL (J0330) As Ordered ONE (21:13)
[2016-06-10] MEDS ORDERED: LIDOCAINE 2% MDV 20 ML VIAL As Ordered ONE (21:13)
[2016-06-10] MEDS ORDERED: BISACODYL 5 MG TAB PO PRN (22:00)
[2016-06-10] MEDS ORDERED: PERCOCET 5MG/325MG TAB PO PRN (22:00)
[2016-06-10] MEDS ORDERED: ONDANSETRON 4MG/2ML VIAL (J2405) IV PRN (22:00)
[2016-06-10] MEDS ORDERED: ACETAMINOPHEN TAB 650MG DOSE (2X325MG) PO PRN (22:00)
[2016-06-10] MEDS ORDERED: AMIODARONE HCL 150 MG in APPROPRIATE DILUENT 1 EA IV ONE ×2 (22:15→23:00)
[2016-06-10] MEDS ORDERED: predniSONE 10 MG TAB PO SCH (22:15)
[2016-06-10] MEDS ORDERED: FUROSEMIDE 20 MG/2 ML VIAL (J1940) IV ONE (23:00)
--- NOTE | 2016-06-10 23:06 | CR ---
DATE OF CONSULTATION: 06/10/2016 REFERRING PROVIDER: Blas Lynch MD REASON FOR CONSULTATION: Atrial fibrillation with a rapid ventricular rate. HISTORY OF PRESENT ILLNESS: 71-year-old male with a history of paroxysmal atrial fibrillation and he was recently mechanically cardioverted here by Dr. Martinez on 05/24/2016, and he has been taking bisoprolol and he is on Pradaxa. He was doing well and he was seen in the office on 06/03/2016, and at that time he was in normal sinus rhythm. He called the office earlier today complaining of lightheadedness and dizziness, increasing shortness of breath. He was told to come to the office and upon arrival, his EKG revealed atrial flutter with 2:1 atrioventricular (AV) block and a ventricular rate of 150 beats per minute. He was hypotensive with a blood pressure that varied in the office between 80-90 mmHg systolic. He was transferred to the emergency room (ER) in [place] and received IV fluids but his blood pressure remained low and at 90 beats per minute. He was not able to receive any medication there and there was no anesthesiologist available at that time for cardioversion. He was transferred to [facility] in [place], [place] and he was mechanically cardioverted this evening with 200 joules of biphasic shock. There was no complications. When I saw him this evening in the intensive care unit/critical care unit (ICU/CCU), he was sitting up in bed with shortness of breath but denies any chest pain or palpitations. He was not having any dizziness. In the hospital, his blood pressure was about 110-115 mmHg systolic, but in the process between [facility] and upon arrival here, he had received more than 1 liter of normal saline. He denies any bleeding. He takes his medication regularly. He has been taking the furosemide daily instead of every other day. His labs revealed a normal serum potassium. He has no focal manifestations. He has no nausea, vomiting, diarrhea, melena, or hematemesis. There is no dysuria, polyuria, or hematuria. He has a cough but no hemoptysis. He denies any fever or chills. He has a past medical history positive for paroxysmal atrial flutter, hypertension, chronic obstructive pulmonary disease (COPD), arthritis, obesity, and syncopal episode years ago with negative cardiac workup. There is no history of noncoronary artery disease, significant valvular heart disease, cardiomyopathy, CVA, sudden cardiac . There is no history of hyperlipidemia, diabetes mellitus, kidney disease, thyroid disorders. Past surgical history is positive for left knee replacement, otherwise unremarkable. MEDICATIONS: Prior to coming to the hospital are: - bisoprolol 5 mg tablets one and a half tablets by mouth twice a day - furosemide 20 mg tablet every other day - gabapentin 400 mg by mouth three times a day - Pradaxa 150 mg by mouth twice a day - tramadol 50 mg tablets three times daily as needed for pain SOCIAL HISTORY: Patient lives with his and he is very active. 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 He is a former smoker, he had stopped years ago. He denies any ethyl alcohol (EtOH) abuse. ALLERGIES: He has history of allergies to XARELTO. ADVANCED DIRECTIVES: Patient is a FULL CODE. PHYSICAL EXAMINATION: Patient is alert and oriented, in no acute distress at rest. His last vital signs reveal a blood pressure of 115/75, with a pulse of 89, respirations 18-20. Examination of the head is normocephalic, atraumatic. Neck is supple, I could not appreciate any jugular venous distention (JVD) or carotid bruits. The lungs did not reveal any wheezing or crackles but prolonged expiratory phase. The heart examination revealed irregularly irregular heart sounds without gallops. The point of maximum impulse (PMI) is not displaced. There is no rub. I could not appreciate any murmurs. The abdomen is soft, protuberant and nontender. Bowel sounds are active. Extremities revealed trace to +1 bilateral lower leg edema. Neurologic examination grossly is negative for focal deficit. LABORATORY DATA: CBC revealed a WBC of 8.2, hemoglobin 11.7, hematocrit 35.6, and platelets 181,000. PT is 14.3 with an INR of 1.42 and a PTT of 37.0. BMP revealed a sodium of 139, potassium 4.0, chloride 103, CO2 32, BUN 18, creatinine 1.25, GFR more than 60, glucose 109, calcium 8.7, total bilirubin 0.4, AST 32, ALT 52, alkaline phosphatase 45, total protein 6.2, albumin 2.8. Serum proBNP is 8000. Serum troponin is 0.08. EKG prior to coming to the hospital revealed atrial flutter at a rate of 150 beats per minute and nonspecific ST-T abnormalities. Repeated echocardiogram after the mechanical cardioversion revealed normal sinus rhythm at 90 beats per minute. IMPRESSION: 71-year-old male with history of symptomatic paroxysmal atrial flutter that usually requires mechanical cardioversion was admitted directly from [facility] today after stopping at the office with atrial flutter with a rapid ventricular rate and low blood pressure. The immediate plan was to proceed with mechanical cardioversion and this was done successfully with a 200 joules shock. Prior to that, 150 mg of IV amiodarone was given in the emergency room (ER) without any response. He will continue his outpatient medications and the Lasix will change to IV Lasix. He has a normal left ventricular systolic function, I will give him a trial of Multaq. The elevated serum proBNP is most likely related to the atrial fibrillation with a rapid ventricular rate. We have discussed about a more invasive treatment for his atrial flutter, ablation, and this also was discussed with his son as well as his present in the room. Patient still wants to think about it. Earlier today, his case was discussed with his primary physician, Dr. Khari Keenan. it was a pleasure to participate in the care of . Zach Monzon for his underlying cardiac condition. I will continue to monitor him along with you while in the hospital. Case also was discussed with hospitalist cesario.
[2016-06-10] MEDS: DABIGATRAN ETEXILATE 75 MG CAP (PRADAXA) PO SCH (23:10)
[2016-06-10] MEDS: BISOPROLOL FUM 2.5 MG PER 1/2TAB PO SCH (23:13)
[2016-06-10] MEDS: ULTRACET TAB PO SCH (23:13)
[2016-06-10] MEDS: GABAPENTIN 400 MG CAP PO SCH (23:14)
[2016-06-11] VITALS (12 sets, daily range): BP systolic 89–122; BP diastolic 55–71
--- NOTE | 2016-06-11 00:35 | RO ---
DATE OF PROCEDURE: 06/10/2016 PREOPERATIVE DIAGNOSIS: Atrial flutter, typical with a rapid ventricular rate and previously associated with hypotension. POSTOPERATIVE DIAGNOSIS: Normal sinus rhythm. PROCEDURE: Mechanical cardioversion. SURGEON: Dr. Dylan Christine RADIO DIVISION LIEUTENANT: None. ANESTHESIA: ANESTHESIOLOGIST: Dr. Ayala COMPLICATIONS: None. DESCRIPTION OF PROCEDURE: Patient was on a monitored bed, on oxygen supplement, and his vital signs as well as his oxygen saturation were being monitored. A nurse was at bedside. He received 120 mg of propofol and once complete sedation was obtained, patient was mechanically cardioverted with a single 200-joule biphasic shock. His atrial fibrillation was successfully cardioverted to a normal sinus rhythm. There were no pauses. Patient tolerated the procedure, and his vital signs remained stable. Upon waking up, he was able to move all his extremities. EKG done after the procedure revealed normal sinus rhythm at 90 beats per minute. Copy To: Dr. Khari [place], [place]
--- NOTE | 2016-06-11 02:21 | HPE ---
DATE OF ADMISSION: 06/10/2016 PRIMARY CARE PROVIDER: Dr. Keenan. AUTOMOTIVE TEACHER: Dr. Christine. CHIEF COMPLAINT: Atrial flutter with rapid ventricular response (RVR), cardioversion. CODE STATUS: Full code HISTORY OF PRESENT ILLNESS: Mr. Monzon is a 71-year-old male with multiple past medical history, who was sent to the hospital for cardioversion from Dr. Christine's office. Patient expressed that he was seeing Dr. Christine today due to having lightheadedness and dizziness and increasing shortness of breath. His office EKG indicated atrial flutter with 2-1 AV block and a ventricle rate of 150. Patient was hypotensive and the blood pressure was below 100 systolic. He was transferred to ER in, [facility] and received IV fluid however his systolic blood pressure continued to be low 100. Due to no availability of anesthesiologist to perform cardioversion patient was transferred to [facility]. Before procedure, patient denied having chest pain, palpitations, racing or skipping heartbeat. Patient also denied feeling pressure on his chest. However , patient expressed that he felt tired for the past week. Also, he expressed that he has been experiencing dizziness and lightheadedness for the past 3-4 days. Patient also felt fatigue and weakness for the past week. Patient diagnosed with atrial fibrillation 5 years ago and he had his first cardioversion 5 years ago. The second one was 2 weeks ago, which was done by Dr. Martinez. Patient has been diagnosed with chronic obstructive pulmonary disease (COPD) for many years and is on oxygen (2 liters) at night.. HOME MEDICATIONS: - albuterol ipratropium one inhaler four times a day as needed for shortness of breath - aspirin 81 mg by mouth daily - bisoprolol fumarate 2.5 mg by mouth twice a day - Pradaxa 150 mg by mouth twice a day - furosemide 20 mg by mouth daily - gabapentin 800 mg by mouth three times a day - multivitamin one tablet by mouth daily - tramadol hydrochloride one tablet by mouth three times a day ALLERGIES: 1. ZOLPIDEM. 2. RIVAROXABAN. SOCIAL HISTORY: Patient lives with his . Patient stopped smoking 5 years ago; however, patient expressed that he has started smoking at age 19, about on average one pack per day. Patient also expressed that used to drink alcohol; however, he has stopped drinking 5 years ago. Patient expressed that before that sometimes he was drinking heavily. Patient denies illicit drug use. Patient has not traveled outside of the [place]. FAMILY HISTORY: Patient has three children, two daughters, one son, who are healthy for their age. Patient had two sisters and one brother. One of his brothers due to pancreatic cancer. Patient's mother at age 70 due to heart attack. Patient's father at age 60 due to heart attack. REVIEW OF SYSTEMS: GENERAL: Patient denies fevers, chills, night sweats, weight loss, weight gain. HEENT: Patient denies acute vision or hearing changes, headache, lightheadedness or dizziness. Patient also denies problem with chewing food or sinusitis. NECK: Patient denies lumps, bumps or decreased range of motion of his neck. HEART: Patient denies palpitations or racing or skipping heartbeat. LUNGS: Patient expressed that he sometimes has shortness of breath. Patient also has cough which is sometimes productive. At night, patient is on 2-liter oxygen. ABDOMEN: Patient denies abdominal pain, nausea, vomiting, diarrhea, constipation, melena, hematochezia, or hemoptysis. NEUROLOGIC: Patient denies history of transient ischemic attack (TIA), CVA, or seizure type activities. PAST MEDICAL HISTORY: 1. COPD. 2. Atrial flutter. PAST SURGICAL HISTORY: Left knee surgery. PHYSICAL EXAMINATION: VITAL SIGNS: Pulse 94, respiratory rate 25, blood pressure 134/72, pulse oximetry 94% on 2-liter nasal cannula. GENERAL APPEARANCE: Patient was lying in bed in no acute distress. The patient was awake, alert, and oriented to time, place and person. HEENT: Normocephalic, atraumatic. Pupils are equal. Oral mucosa is moist. NECK: Soft, supple. No lymphadenopathy. No thyromegaly. HEART: Regular rate and rhythm. Normal S1, S2. ABDOMEN: Soft, nontender, positive bowel sounds in all quadrants. LUNGS: Patient had scattered rhonchi at the base of his lungs. Patient has inhale and exhale wheezing. EXTREMITIES: Patient has mild pitting edema in both lower extremities. Patient has +2 pulses in both lower extremities. Patient has normal range of motion in both upper and lower extremities. NEUROLOGIC: Cranial nerves II-XII intact. No focal deficiencies. LABORATORY DATA: No laboratory data is available at this moment. EKG prior to coming to the hospital revealed atrial flutter at a rate of 150 beats per minute and nonspecific ST-T abnormalities. Echocardiogram after the mechanical cardioversion revealed normal sinus rhythm at 90 beats per minute. ASSESSMENT AND PLAN: 1. Symptomatic paroxysmal atrial flutter. Dr. Christine performed mechanical cardioversion. Patient was given 150 mg of intravenous (IV) amiodarone at the emergency without any response. After cardioversion, based on Dr. Christine's recommendations, I administered another 150 mg of IV amiodarone. Based on Dr. Christine, patient had the serum proBNP elevation, which is most likely related to the arterial fibrillation with rapid ventricular rate. Dr. Christine considering him to have ablation in future and it has been discussed with the patient and the patient's son. We will continue patient on aspirin and we will start patient on Zebeta 2.5 mg by mouth twice a day, as well as Pradaxa 150 mg by mouth twice a day. 2. At this time, patient is stable. I have stopped the albuterol and albuterol containing breathing treatments due to contributing to tachycardia. Will continue monitoring patient. Patient is on oxygen for the saturation of 88-92. Patient is stable at this time. 3. Deep venous thrombosis (DVT) prophylaxis. Patient is on thromboembolism deterrent stockings (TEDS) and sequentials. Patient is also on Pradaxa. My preceptor for this patient encounter was Dr. Deedee Liu. The preceptor was physically present in the building during the encounter and was fully available as needed. All aspects of the patient interview, examination, medical decision making process, and medical care plan development were reviewed and approved by the preceptor. The preceptor is aware and concurs with the plan as stated in the body of this note and will attest to such by his/her co-signature. JESSEE
[2016-06-11 04:56] LABS: MEAN CORPUSCULAR HEMOGLOBIN 32.3 pg (27.0-33.0); MEAN CORPUSCULAR HGB CONC 32.7 g/dl (32.0-36.5); MEAN CORPUSCULAR VOLUME 98.9 fl (80.0-96.0); RED CELL DISTRIBUTION WIDTH 14.1 % (11.5-14.5); WHITE BLOOD COUNT 6.7 K/mm3 (4.0-10.0)
[2016-06-11 04:58] LABS: ANION GAP 6 MEQ/L (8-16); BLOOD UREA NITROGEN 14 MG/DL (7-18); CALCIUM LEVEL 7.7 MG/DL (8.8-10.2); CARBON DIOXIDE LEVEL 33 MEQ/L (21-32); CHLORIDE LEVEL 102 MEQ/L (98-107); CREATININE FOR GFR 1.04 MG/DL (0.70-1.30); GLOMERULAR FILTRATION RATE > 60.0 (>42); GLUCOSE, FASTING 123 MG/DL (83-110); MAGNESIUM LEVEL 1.6 MG/DL (1.8-2.4); POTASSIUM SERUM 3.6 MEQ/L (3.5-5.1); SODIUM LEVEL 141 MEQ/L (136-145)
[2016-06-11] MEDS ORDERED: MAG SULF 1GM/100ML (MAG RUN) 1 GM in APPROPRIATE DILUENT 1 EA IV ONE (07:30)
--- NOTE | 2016-06-11 08:35 | IPNPDOC ---
Subjective Date Seen The patient was seen on 06/11/16. Subjective Chief Complaint/HPI The patient is a 71-year-old male admitted with a reason for visit of Atrial Fib. Events since last encounter Patient was seen this morning at bedside in the ICU. Denies any chest pain/ pressure, increased SOB, lightheadedness or dizziness this morning. No nausea, vomiting, diarrhea, fevers, chills. Objective Physical Examination General Exam: Positive: Alert, Cooperative, No Acute Distress Eye Exam: Positive: Conjunctiva & lids normal, EOMI, Negative: Sclera icteric ENT Exam: Positive: Atraumatic, Mucous membr. moist/pink, Pharynx Normal Neck Exam: Positive: Supple, Negative: thyromegaly Chest Exam: Positive: Normal air movement, Negative: Rales, Wheezing Heart Exam: Positive: Rate Normal, Regular Rhythm, Normal S1, Normal S2 Abdomen Exam: Positive: Normal bowel sounds, Soft, Negative: Tenderness Extremity Exam: Positive: Edema (+1 lower extremity edema bilaterally), Normal pulses Skin Exam: Positive: Nl turgor and temperature, Negative: Rash Neuro Exam: Positive: Normal Speech, Cranial Nerves 3-12 NL Psych Exam: Positive: Mental status NL, Mood NL, Oriented x 3 Assessment /Plan Problems (1) Atrial flutter with rapid ventricular response Status: Acute Problem Specific Plan: Consult Specialist, Monitor Clinically Problem Text: * Status post electrical cardioversion on 06/10 * Currently sinus rhythm, rate controlled * Cardiology following * Patient will be started on Multaq per cardiology * Continue Zebeta BID, Pradaxa BID and oral Lasix * Patient had an echocardiogram done a couple weeks ago which revealed normal EF (2) Hypomagnesemia Status: Acute Problem Specific Plan: Monitor Clinically Problem Text: * Will give magnesium supplementation * Will repeat potassium and magnesium levels this afternoon (3) COPD (chronic obstructive pulmonary disease) Status: Chronic Problem Specific Plan: Monitor Clinically Problem Text: * Chronically uses 2L O2 at night * Monitor resp status Plan/VTE VTE Prophylaxis Ordered?: Yes (pradaxa) Disposition Likely dc home later today as long as patient remains stable VS, I&O, 24H, Fishbone Vital Signs/I&O Vital Signs Date Time Temp Pulse Resp B/P (MAP) Pulse Ox O2 Delivery O2 Flow Rate FiO2 06/11/16 04:00 97.8 80 16 106/59 (75) 95 Nasal Cannula 2.0 I&O- Last 24 Hours up to 6 AM 06/11/16 06:00 Intake Total 650 ml Output Total 1550 ml Balance -900 ml Laboratory Data CBC/BMP Laboratory Tests 06/11/16 04:22 Red Blood Count 3.44 L, Mean Corpuscular Volume 98.9 H, Mean Corpuscular Hemoglobin 32.3, Mean Corpuscular Hemoglobin Concent 32.7, Red Cell Distribution Width 14.1, Calcium Level 7.7 L VENU FRASER DO June 11, 2016 08:35
[2016-06-11] MEDS: GABAPENTIN 400 MG CAP PO SCH (08:48)
[2016-06-11] MEDS: DABIGATRAN ETEXILATE 75 MG CAP (PRADAXA) PO SCH (08:48)
[2016-06-11] MEDS: BISOPROLOL FUM 2.5 MG PER 1/2TAB PO SCH (08:48)
[2016-06-11] MEDS ORDERED: ASPIRIN 81 MG ENTERIC TAB PO SCH (09:00)
[2016-06-11] MEDS ORDERED: FUROSEMIDE 20 MG TAB PO SCH (09:00)
[2016-06-11] MEDS ORDERED: MULTIVITAMINS/MINERALS THERAP 1 TAB PO SCH (09:00)
[2016-06-11] MEDS: ULTRACET TAB PO SCH (09:02)
[2016-06-11] MEDS ORDERED: MAGNESIUM OXIDE 400 MG TAB (MAG-OX) PO ONE ×2 (09:45→12:00)
[2016-06-11] MEDS ORDERED: POTASSIUM CHLORIDE 10 MEQ SR TABLET PO ONE (10:00)
[2016-06-11] MEDS ORDERED: DRONEDARONE 400 MG TAB (MULTAQ) PO SCH (10:00)
[2016-06-11] MEDS ORDERED: DRON40TA PO (13:42)
[2016-06-11 14:05] LABS: MAGNESIUM LEVEL 1.7 MG/DL (1.8-2.4); POTASSIUM SERUM 4.1 MEQ/L (3.5-5.1)
[2016-06-11] MEDS ORDERED: MAG400TA PO (14:29)
[2016-06-11] MEDS ORDERED: MAGNESIUM OXIDE 400 MG TAB (MAG-OX) PO SCH (21:00)
--- NOTE | 2016-06-11 23:25 | ECGEPIP ---
Stationary ECG Study [facility] Test Date: 2016-06-10 Pat Name: REANNA RABAGO Department: Room: [place] [address] Gender: M Manager Pediatric: ANNIE : 1945 Requested By: ANNA CRUZ Order Number: [id number] Reading MD: Anna Cruz Measurements Intervals [place] Rate: 90 P: 56 MO: 136 QRS: 37 QRSD: 86 T: 53 QT: 339 QTc: 416 Interpretive Statements SINUS RHYTHM Compared to the last 4 tracings in the system. Heart rate is slower. Patient had prior episodes of atrial flutter Electronically Signed On 06-11-2016 23:25:21 EDT by Anna Cruz
--- NOTE | 2016-06-17 14:53 | DSES ---
DATE OF ADMISSION: 06/10/2016 DATE OF DISCHARGE: 06/11/2016 CONSULTANTS: Dr. Christine DISCHARGE DIAGNOSES: 1. Atrial flutter status post electrical cardioversion. 2. Hypomagnesemia. 3. Chronic obstructive pulmonary disease (COPD). 4. Chronic hypoxic respiratory failure, on two liters of oxygen. DISCHARGE MEDICATIONS: - Multaq 400 mg by mouth twice daily - magnesium oxide 800 mg by mouth daily - albuterol/ipratropium nebulizer one solution inhaled four times daily as needed - aspirin 81 mg daily - Zebeta 2.5 mg by mouth twice daily - Pradaxa 150 mg by mouth twice daily - furosemide 20 mg by mouth daily - gabapentin 800 mg three times daily - multivitamins one tablet by mouth daily - prednisone 10 mg by mouth - tramadol/acetaminophen one tablet by mouth three times daily BRIEF HOSPITAL COURSE: The patient originally presented with lightheadedness, dizziness, and increasing shortness of breath. In the outpatient office, an EKG was performed which showed atrial flutter with 2:1 atrioventricular (AV) block with a ventricular rate of 150. He was also hypotensive and he was brought to the emergency room (ER). IV fluids were administered. He was transferred to [facility] for electrical cardioversion. He had cardioversion performed about two weeks prior to this episode. After electrocardioversion, the patient was in sinus rhythm and pulse was within normal. He denied any further symptoms. No lightheadedness, dizziness, chest pains/pressure, shortness of breath, nausea, vomiting, diarrhea, abdominal pain, fevers, or chills. He stated that he felt well and was eager to go home. He reported that he had a grandson that was getting the next day and he did not want to miss this wedding. His also stated that they could not miss this wedding. The patient was initiated on Multaq. We monitored him for several hours to make sure that he remained stable on this new medication. Since he was stable and very eager to go home, he was subsequently discharged to followup with his stereotyper helper. LABORATORY DATA ON DISCHARGE: WBC 6.7, hemoglobin 11.1, hematocrit 34.0, platelet count 165. Sodium 141, potassium 4.1, chloride 102, carbon dioxide 33, anion gap 6, BUN 14, creatinine 1.04, GFR greater than 60, fasting glucose 123, calcium 7.7, magnesium 1.7. PHYSICAL EXAMINATION ON DISCHARGE: VITAL SIGNS: Temperature 97.2, pulse 80, respiratory rate 20, blood pressure 118/63, pulse oximetry 93% on room air. GENERAL: The patient is alert and oriented, in no acute distress. HEENT: Normocephalic, atraumatic. Extraocular muscles are intact. Pupils are equally round and reactive to light. No scleral icterus. Moist mucosa. NECK: Supple. No cervical lymphadenopathy. No jugular venous distension appreciated. HEART: Normal S1, S2, regular rate and rhythm. No murmur appreciated. LUNGS: Clear to auscultation bilaterally. No rales, rhonchi or wheezing. ABDOMEN: Soft, nontender, nondistended. Positive bowel sounds. No rebound, guarding or rigidity. EXTREMITIES: Mild lower extremity edema bilaterally. Positive pedal pulses. SKIN: Warm and dry. No rashes noted. NEUROLOGIC: No focal deficits. Cranial nerves II-XII are grossly intact. Motor and sensation intact. DISCHARGE INSTRUCTIONS: The patient is discharged in stable condition. He should followup with his primary doctor in one week and followup with Dr. Christine in one week. Activity as tolerated. No added salt diet. Return to the emergency department with any worsening or recurring symptoms. TIME SPENT ON DISCHARGE: Greater than 30 minutes. My preceptor for this patient encounter was Dr. Alona Mai. The preceptor was physically present in the building during the encounter and was fully available as needed. All aspects of the patient interview, examination, medical decision making process, and medical care plan development were reviewed and approved by the preceptor. The preceptor is aware and concurs with the plan as stated in the body of this note and will attest to such by his/her co-signature.
== END 2016-06-11 14:38 | disposition home or self-care (01) | DRG 310 ==
LOC: M ICU 20:12
PROVIDERS: ADMIT Internal Medicine; ATTEND General Practice
PROC: 5A2204Z Restoration of Cardiac Rhythm, Single (ICD-10-PCS; principal; 2016-06-10)
DX: I48.3 Typical atrial flutter (principal); J44.9 Chronic obstructive pulmonary disease, unspecified; I48.0 Paroxysmal atrial fibrillation; I10 Essential (primary) hypertension; E66.9 Obesity, unspecified; E83.42 Hypomagnesemia; Z99.81 Dependence on supplemental oxygen; Z79.82 Long term (current) use of aspirin; Z79.01 Long term (current) use of anticoagulants; Z79.899 Other long term (current) drug therapy; Z79.891 Long term (current) use of opiate analgesic; Z87.891 Personal history of nicotine dependence; Z96.652 Presence of left artificial knee joint; Z88.8 Allergy status to other drugs, medicaments and biological substances

== ENCOUNTER 2020-06-25 19:57 | Inpatient (IN) | payer OTHER, MEDICARE ==
[~2020-06-25] VITALS: Ht 172.7 cm; Wt 95.8 kg
[~2020-06-25 19:57] MED LIST changes: -/PANT40TA PO; -ASPI1TAB PO; +ASPI81TA26 PO; +BISO5TAB14 PO; -BISO5TAB5 PO; +DRON400T PO; +FLEC50HA PO; -FLEC50TA PO; +IPRA0.00 INH; -IPRASOL4 INH; -LASI40TA PO; +LASI40TA9 PO; +MAGN400T35 PO; -PRAD150C PO; +PRAD150C6 PO; -PRED10TA PO; +PRED10TA2 PO; +PROT1TAB2 PO; -SPIR50TA2 PO; +SPIR50TA4 PO
[2020-06-25] MEDS ORDERED: ADVAIR HFA 230/21MCG INHALER INH SCH (20:00)
[2020-06-25 20:28] LABS: BASO # 0.1 10^3/uL (0.0-0.2); BASO % 0.3 % (0.0-1.0); EOS # 0.1 10^3/uL (0.0-0.5); EOS % 0.4 % (0.0-3.0); HEMATOCRIT 33.8 % (42.0-52.0); HEMOGLOBIN 10.2 g/dl (13.5-17.5); LYMPH # 2.1 10^3/uL (1.5-5.0); LYMPH % 11.3 % (24.0-44.0); MEAN CORPUSCULAR HEMOGLOBIN 24.2 pg (27.0-33.0); MEAN CORPUSCULAR HGB CONC 30.2 g/dl (32.0-36.5); MEAN CORPUSCULAR VOLUME 80.1 fl (80.0-96.0); MONO # 1.8 10^3/uL (0.0-0.8); MONO % 9.9 % (2.0-8.0); NEUTROPHILS # 14.1 10^3/uL (1.5-8.5); NEUTROPHILS % 76.8 % (36.0-66.0); PLATELET COUNT, AUTOMATED 306 10^3/uL (150-450); RED BLOOD COUNT 4.22 10^6/uL (4.30-6.10)
[2020-06-25] MEDS: NS 1,000 ML IV SCH ×2 (20:35→23:15)
--- NOTE | 2020-06-25 20:42 | ECGEPIP ---
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
[2020-06-25] MEDS: MIDAZOLAM INJ 2MG/2ML VIAL (J2250 PER 1MG) IV PRN (20:51)
[2020-06-25 21:01] LABS: WHITE BLOOD COUNT 18.4 10^3/uL (4.0-10.0)
[2020-06-25 21:10] LABS: CALCIUM LEVEL 8.3 MG/DL (8.8-10.2); CK-MB VALUE MASS 2.4 NG/ML (<3.6); CREATININE FOR GFR 1.36 MG/DL (0.70-1.30); FREE T4 0.79 NG/DL (0.76-1.46); GLOMERULAR FILTRATION RATE 54.5 (>42); MB/CK RELATIVE INDEX 2.42 (< OR =4); POTASSIUM SERUM 4.7 MEQ/L (3.5-5.1); THYROID STIMULATING HORMONE 4.68 uIU/ML (0.358-3.740); TROPONIN I 0.02 NG/ML (< 0.10)
--- NOTE | 2020-06-25 21:19 | REPVR ---
PROCEDURE INFORMATION: Exam: XR Chest Exam date and time: 06/25/2020 8:37 PM Age: 75 years old Clinical indication: Other: Chest pain TECHNIQUE: Imaging protocol: XR of the chest. Views: 1 view. COMPARISON: CR PORTABLE CHEST X-RAY 05/22/2016 4:33 PM FINDINGS: Tubes, catheters and devices: External monitoring devices present. Lungs: Course linear opacities right lung base. Pleural spaces: Thickening of the minor fissure. Left-sided pleural thickening. Heart/Mediastinum: Unremarkable. No cardiomegaly. Bones/joints: Unremarkable. Other findings: The patient is rotated to the right IMPRESSION: 1. Discoid atelectasis or scar at the right lung base. 2. Left-sided pleural thickening. This is probably not from previous Electronically signed by: Kaycee Rolle On 06/25/2020 21:18:43 PM
[2020-06-25] MEDS ORDERED: FURO40TA2 (21:35)
[2020-06-25] MEDS ORDERED: POTA1TAB23 (21:35)
[2020-06-25] MEDS ORDERED: MECL-86 (21:35)
[2020-06-25] MEDS ORDERED: ANOR1AER (21:35)
[2020-06-25] MEDS ORDERED: GABA800T4 (21:35)
[2020-06-25] MEDS ORDERED: MAALOX 30 ML SUSP *UDC PO PRN (21:45)
[2020-06-25] MEDS ORDERED: MOM 30ML SUSPENSION UDC PO PRN (21:45)
[2020-06-25] MEDS ORDERED: ACETAMINOPHEN TAB 650MG DOSE (2X325MG) PO PRN (21:45)
--- NOTE | 2020-06-25 21:53 | HPEPDOC ---
[facility] Medical History & Physical Date of Admission June 25, 2020 Date of Service: June 25, [address] Christine Attending Physician: JERRI DAVIS MD History and Physical TIME OF SERVICE 1015PM CHIEF COMPLAINT: HISTORY OF PRESENT ILLNESS: This 75 yr old M has been feeling short of breath, had epigastric pain and felt very hot today; he denied having f/c/ dizziness, palpitations, change in his chronic cough, or feeling lethargic. He saw his PCP who noted that he was in RVR w a rate in the 170sand sent him to [facility]; despite receiving Lopressor he remained in RVR therefore he was transferred to [facility] ER. Upon arrival his HR was still in the 170s while his SBP was in the 90s; Dr. Perez successfully performed cardioversion after d/w . Currently the CP has resolved and he denies feeling short of breath or like his COPD is acting up ROS: 12 point ROS neg except as listed in HPI PAST MEDICAL/SURGICAL HISTORY: Chronic HFpEF, Long standing persistent Atrial Fibrillation s/p ablation / s/p cardioversions in 2011, 2017 x 2 and today, COPD w nocturnal O2 dependence (2L), Class 1 obesity, Pre-DM, Chronic Right foot ulcer (not sure of etiology), left knee surgery Denies CAD, PCI, CVA SOCIAL HISTORY: He is a former smoker, quit drinking, & lives with his FAMILY HISTORY: Brother pancreatic cancer / Mother [place]/ Father [place] ALLERGIES: Please see below. HOME MEDICATIONS: Please see below. PHYSICAL EXAMINATION: Vital Signs Date Time Temp Pulse Resp B/P (MAP) Pulse Ox O2 Delivery O2 Flow Rate FiO2 06/25/20 20:03 145 20 114/74 95 Nasal Cannula 06/25/20 20:12 2.0 06/25/20 21:18 99.4 GENERAL APPEARANCE: well nourished and developed /NAD INTEGUMENT: not flushed/ not diaphoretic / not pale HEENT: EOMI / no conjunctival injection / NC in place CARDIOVASCULAR: RRR/NMRG/ no LE edema HR in the 80s at the time of exam LUNGS: CTAB / no use of accessory muscles ABDOMEN: contour obese MUSCULOSKELETAL: ROMIx4 extremities NEUROLOGICAL: CN 2-12 grossly intact /speech not dysarthric PSYCHIATRIC: A&Ox3 able to understand and follow all commands LABORATORY DATA: Immature Granulocyte % (Auto) 1.3, Neutrophils (%) (Auto) 76.8H, Lymphocytes (%) (Auto) 11.3L, Monocytes (%) (Auto) 9.9H, Eosinophils (%) (Auto) 0.4, Basophils (%) (Auto) 0.3, Neutrophils # (Auto) 14.1H, Lymphocytes # (Auto) 2.1, Monocytes # (Auto) 1.8H, Eosinophils # (Auto) 0.1, Basophils # (Auto) 0.1, Nucleated Red Blood Cells % (auto) 0.0, Anion Gap 6L, Glomerular Filtration Rate 54.5, Calcium Level 8.3L, Total Creatine Kinase 99, Creatine Kinase MB 2.4, Creatine Kinase MB Relative Index 2.42, Troponin I 0.02, UK-Zov-I-Type Natriuretic Peptide 6852H, Thyroid Stimulating Hormone (TSH) 4.680H, Free Thyroxine 0.79 IMAGING: Chest xray "IMPRESSION: 1. Discoid atelectasis or scar at the right lung base. 2. Left-sided pleural thickening. This is probably not from previous " MICROBIOLOGY: COVID 19 neg ASSESSMENT: is a 75 yr old w A.fib s/p ablation & cardioversions, HFpEF, COPD w nocturnal O2 dependence (2L), obesity, Pre-DM & chronic right foot ulcer who will be admitted to determine the cause of rapid A.fib & SIRS PLAN: PLAN: 1 Atrial Fib He is in sinus rhythm after cardioversion The trigger of this episode of RVR may be due to untreated JOHN, occult infection or idiopathic; despite the elevated BNP clinically he doesnt appear to have fluid overload, doesnt appear to have chest pain, doesnt feel like he is a COPD exacerbation, doesnt have PNA and had a neg COVID test a [facility]. It is unlikely that he has a PE triggering rapid Afib bc he is on AC. His most recent Echo done in 2017 showed HFpEF, AV sclerosis and mitral annulus calcification; there is no mention of Rheumatic heart dz (I will hold off r epeating an Echo this admission, unless requests one.) Plan: admit to ICU for close monitoring in case he reverts back to RVR / telemetry / f/u serial Trops to definitively r/o WI / f/u TSH & Mg / per c/w bisprolol, dabigatran & dronedarone / see if it is possible to check Dronadarone levels / he will need a referral for an out patient sleep study 2 SIRS Cause TBD SIRS criteria: WBC >12 & RR > 20 qSOFA score = 1 = not high risk Plan: f/u blood culture and lactic acid/ will hold off UA bc he denied having abdominal pain or back pain and doesnt have a fever 3 Normocytic hypochromic anemia Plan: f/u iron studies & stool occult 4 DEREJE vs CKD ? We dont have recent BMP Plan: f/u repeat BMP 5 Chronic R foot wound Plan: will ask the day time team to consult regarding dressing changes / c/w levofloxacin which per the pt is for the wound 6 Chronic COPD Plan: switch from albuterol to levalbuterol PRN w salmeterol / pulse ox / c/w nocturnal O2 7 Chronic HFpEF Plan: f/u Is and Os / c/w lasix 8 Class 1 obesity / Pre-DM Complicates care Plan: f/u A1C DVT px n/a he is on AC Dispo: home after more than 2 midnights stay Home Medications Scheduled Albuterol Sulf (Albuterol Sulfate) 2.5 Mg/3 Ml Vial.neb, 2.5 MG INH TID Bisoprolol Fumarate (Bisoprolol Fumarate) 5 Mg Tablet, 2.5 MG PO BID Dabigatran Etexilate Mesylate (Pradaxa) 150 Mg Capsule, 150 MG PO BID Dronedarone (Multaq) 400 Mg Tablet, 400 MG PO DAILY Furosemide (Furosemide) 40 Mg Tablet, 40 MG PO BID Gabapentin (Gabapentin) 800 Mg Tablet, 800 MG PO TID Levofloxacin (Levofloxacin) 500 Mg Tablet, 500 MG PO DAILY Magnesium Oxide (Magnesium Oxide) 400 Mg Tablet, 400 MG PO DAILY Meclizine HCl (Meclizine HCl) 25 Mg Tablet, 25 MG PO BID Multivitamins (Thera M Plus Tablet) 1 Each Tablet, 1 TAB PO DAILY Potassium Chloride (Potassium Chloride) 10 Meq Tab.er.prt, 10 MEQ PO DAILY Umeclidinium Brm/Vilanterol Tr (Anoro Ellipta 62.5-25 Mcg INH) 1 Each Blst.w.dev, 1 PUFF INH DAILY Allergies Coded Allergies: rivaroxaban (Verified Allergy, Severe, 06/25/20) zolpidem (Verified Allergy, Severe, 06/25/20) A-FIB/CHADSVASC A-FIB History Current/History of A-Fib/PAF?: Yes Current PO Anticoag Therapy: Yes JERRI DAVIS MD June 25, 2020 21:53
[2020-06-25] MEDS ORDERED: POTA10TA67 PO (22:46)
[2020-06-25] MEDS ORDERED: LEVO500T3 PO (22:46)
[2020-06-25] MEDS ORDERED: GABA800T4 PO (22:46)
[2020-06-25] MEDS ORDERED: ALBU83IN INH (22:46)
[2020-06-25] MEDS ORDERED: BISO5TAB14 PO (22:46)
[2020-06-25] MEDS ORDERED: VITMTA PO (22:46)
[2020-06-25] MEDS ORDERED: MECL-86 PO (22:46)
[2020-06-25] MEDS ORDERED: MAGN400T2 PO (22:46)
[2020-06-25] MEDS ORDERED: FURO40TA2 PO (22:46)
[2020-06-25] MEDS ORDERED: ANOR1AER INH (22:46)
[2020-06-25] MEDS ORDERED: DRON400T PO (22:46)
[2020-06-25] MEDS ORDERED: PRAD150C6 PO (22:46)
[2020-06-25 23:00] VITALS: BP 128/68
[2020-06-25] MEDS ORDERED: LEVALBUTEROL HFA 45MCG/ACT 15 GM INHALER INH PRN (23:10)
[2020-06-25 23:32] LABS: MAGNESIUM LEVEL 2.1 MG/DL (1.8-2.4)
[2020-06-26] VITALS: BP 118/57
[2020-06-26] MEDS: GABAPENTIN 400MG CAP PO SCH ×2 (00:14→09:29)
[2020-06-26] MEDS: MECLIZINE 25 MG TABLET PO SCH ×2 (00:15→09:29)
[2020-06-26] MEDS: bisoproloL fumarate 5 MG TAB PO SCH ×2 (00:15→09:30)
[2020-06-26] MEDS: DABIGATRAN ETEXILATE 75 MG CAP (PRADAXA) PO SCH ×2 (00:15→09:28)
[2020-06-26] MEDS: FUROSEMIDE 40 MG TAB PO SCH ×2 (00:16→09:29)
[2020-06-26 04:44] LABS: HEMATOCRIT 33.8 % (42.0-52.0); HEMOGLOBIN 9.9 g/dl (13.5-17.5); MEAN CORPUSCULAR HEMOGLOBIN 23.9 pg (27.0-33.0); MEAN CORPUSCULAR HGB CONC 29.3 g/dl (32.0-36.5); MEAN CORPUSCULAR VOLUME 81.6 fl (80.0-96.0); PLATELET COUNT, AUTOMATED 269 10^3/uL (150-450); RED BLOOD COUNT 4.14 10^6/uL (4.30-6.10)
[2020-06-26 05:03] LABS: HEMOGLOBIN A1c 5.9 %
[2020-06-26 05:17] LABS: BLOOD UREA NITROGEN 16 MG/DL (7-18); CALCIUM LEVEL 7.8 MG/DL (8.8-10.2); CARBON DIOXIDE LEVEL 32 MEQ/L (21-32); CHLORIDE LEVEL 105 MEQ/L (98-107); CREATININE FOR GFR 1.22 MG/DL (0.70-1.30); FERRITIN 12 NG/ML (26-388); GLOMERULAR FILTRATION RATE > 60.0 (>42); GLUCOSE, FASTING 119 MG/DL (70-100); IRON (FE) 23 UG/DL (65-175); PERCENT SATURATION 5.6 % (19.7-50.0); POTASSIUM SERUM 3.9 MEQ/L (3.5-5.1); SODIUM LEVEL 142 MEQ/L (136-145); TOTAL IRON BINDING CAPACITY 412 UG/DL (250-450)
--- NOTE | 2020-06-26 05:34 | ECGEPIP ---
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
[2020-06-26] MEDS ORDERED: LevoFLOXacin 500 MG TABLET PO SCH (06:00)
[2020-06-26 08:00] VITALS: BP 111/63
[2020-06-26] MEDS ORDERED: MULTIVITAMINS/MINERALS THERAP 1 TAB PO SCH (09:00)
[2020-06-26] MEDS ORDERED: DRONEDARONE 400 MG TAB (MULTAQ) PO SCH (09:00)
[2020-06-26] MEDS ORDERED: MAGNESIUM OXIDE 400MG TAB (MAG-OX) PO SCH (09:00)
[2020-06-26] MEDS ORDERED: POTASSIUM CHLORIDE 10 MEQ SR TABLET PO SCH (09:00)
[2020-06-26 09:30] VITALS: BP 111/63
[2020-06-26] MEDS ORDERED: PILL CUTTER 1 EACH XX PRN (09:35)
[2020-06-26] MEDS ORDERED: COLA100C5 PO (11:47)
[2020-06-26] MEDS ORDERED: FERR325T3 PO (11:47)
[2020-06-26 11:57] VITALS: BP 120/78
--- NOTE | 2020-06-26 13:28 | DS.PDOC ---
Discharge Summary General Date of Admission June 25, 2020 at 21:44 Date of Discharge 06/26/20 Discharge Summary PROCEDURES PERFORMED DURING STAY: Cardioversion DISCHARGE DIAGNOSES: Afib with RVR s/p Cardioversion Like JOHN undiagnosed. SECONDARY DIAGNOSIS Iron def anemia s/p EGD and colonoscopy 2 weeks prior at [place] [place]. Chronic HFpEF Paroxysmal Atrial Fibrillation s/p ablation / s/p cardioversions in 2011, 2017 x 2 COPD Likely JOHN w nocturnal O2 dependence (2L), Obesity Pre DM with Neuropathy Right Charcot foot deformity Chronic Right planter mid foot ulcer left knee surgery COMPLICATIONS/CHIEF COMPLAINT: Atrial Fib,With Rapid Ventricular Response. HOSPITAL COURSE: This 75 yr old M had been feeling short of breath, had epigastric pain and felt very hot adn felt like he was having a COPD exacerbation. He saw his PCP who noted that he was in RVR with a rate in the 170sand sent him to [facility]; despite receiving Lopressor he remained in RVR therefore he was transferred to [facility]. Upon arrival his HR was still in the 170s while his SBP was in the 90s; Dr. Perez successfully performed cardioversion after d/w . He reverted into sinus rhythm. Overnight he was monitored on telemetry adn he has remained in sinus rhythm. He does not have any complaints this morning. He is stable to be discharged home. DISCHARGE MEDICATIONS: Please see below. ALLERGIES: Please see below. PHYSICAL EXAMINATION ON DISCHARGE: VITAL SIGNS: Please see below. GENERAL: well nourished and developed /NAD INTEGUMENT: not flushed/ not diaphoretic / not pale HEENT: EOMI / no conjunctival injection / NC in place CARDIOVASCULAR: RRR/NMRG/ no LE edema HR in the 80s in sinus rhythm LUNGS: CTAB / no use of accessory muscles ABDOMEN: contour obese, soft nontender MUSCULOSKELETAL: ROMIx4 extremities NEUROLOGICAL: CN 2-12 grossly intact /speech not dysarthric PSYCHIATRIC: A&Ox3 able to understand and follow all commands LABORATORY DATA: Please see below. ACTIVITY: [As tolerated]. DIET: As tolerated DISCHARGE PLAN: Home DISCHARGE INSTRUCTIONS: Follow up with Dr Husain in 2 weeks PMD in 1 week DISCHARGE CONDITION: [Stable]. TIME SPENT ON DISCHARGE: 32 minutes. Vital Signs/I&Os Vital Signs Date Time Temp Pulse Resp B/P (MAP) Pulse Ox O2 Delivery O2 Flow Rate FiO2 06/26/20 11:57 97.6 76 17 120/78 (92) 92 Room Air 06/26/20 08:00 2.0 I&O- Last 24 Hours up to 6 AM 06/26/20 06:00 Intake Total 920 ml Output Total 675 ml Balance 245 ml Laboratory Data Labs 24H Laboratory Tests 2 06/25/20 20:13: Immature Granulocyte % (Auto) 1.3, Neutrophils (%) (Auto) 76.8H, Lymphocytes (%) (Auto) 11.3L, Monocytes (%) (Auto) 9.9H, Eosinophils (%) (Auto) 0.4, Basophils (%) (Auto) 0.3, Neutrophils # (Auto) 14.1H, Lymphocytes # (Auto) 2.1, Monocytes # (Auto) 1.8H, Eosinophils # (Auto) 0.1, Basophils # (Auto) 0.1, Nucleated Red Blood Cells % (auto) 0.0, Anion Gap 6L, Glomerular Filtration Rate 54.5, Calcium Level 8.3L, Magnesium Level 2.1, Total Creatine Kinase 99, Creatine Kinase MB 2.4, Creatine Kinase MB Relative Index 2.42, Troponin I 0.02, TC-Bnh-F-Type Natriuretic Peptide 6852H, Thyroid Stimulating Hormone (TSH) 4.680H, Free Thyroxine 0.79 06/25/20 23:40: Lactic Acid Level 1.8 06/26/20 04:27: Nucleated Red Blood Cells % (auto) 0.0, Anion Gap 5L, Glomerular Filtration Rate > 60.0, Calcium Level 7.8L, Estimated Mean Plasma Glucose 123H, Hemoglobin A1c 5.9, Iron Level 23L, Total Iron Binding Capacity 412, Transferrin % Saturation 5.6L, Ferritin 12L CBC/BMP Laboratory Tests 06/25/20 20:13 06/26/20 04:27 Microbiology Microbiology 06/25/20 Blood Culture, Received Pending Discharge Medications Scheduled Albuterol Sulf (Albuterol Sulfate) 2.5 Mg/3 Ml Vial.neb, 2.5 MG INH TID, (Reported) Bisoprolol Fumarate (Bisoprolol Fumarate) 5 Mg Tablet, 2.5 MG PO BID, (Reported) Dabigatran Etexilate Mesylate (Pradaxa) 150 Mg Capsule, 150 MG PO BID, (Reported) Docusate Sodium (Colace) 100 Mg Capsule, 100 MG PO DAILY Dronedarone (Multaq) 400 Mg Tablet, 400 MG PO DAILY, (Reported) Ferrous Sulfate (Ferrous Sulfate) 325 Mg Tablet.dr, 1 TAB PO DAILY Furosemide (Furosemide) 40 Mg Tablet, 40 MG PO BID, (Reported) Gabapentin (Gabapentin) 800 Mg Tablet, 800 MG PO TID, (Reported) Levofloxacin (Levofloxacin) 500 Mg Tablet, 500 MG PO DAILY, (Reported) Magnesium Oxide (Magnesium Oxide) 400 Mg Tablet, 400 MG PO DAILY, (Reported) Meclizine HCl (Meclizine HCl) 25 Mg Tablet, 25 MG PO BID, (Reported) Multivitamins (Thera M Plus Tablet) 1 Each Tablet, 1 TAB PO DAILY, (Reported) Potassium Chloride (Potassium Chloride) 10 Meq Tab.er.prt, 10 MEQ PO DAILY, (Reported) Umeclidinium Brm/Vilanterol Tr (Anoro Ellipta 62.5-25 Mcg INH) 1 Each Blst.w.dev, 1 PUFF INH DAILY, (Reported) Allergies Coded Allergies: rivaroxaban (Verified Allergy, Severe, 06/25/20) zolpidem (Verified Allergy, Severe, 06/25/20) CLIFF WRIGHT MD June 26, 2020 13:28
[2020-07-01 09:55] LABS: AMIODARONE (CORDARONE) <100 ng/mL (1000-2500)
[2020-07-01 11:57] LABS: NORAMIODARONE LEVEL SEE SEPARATE REPORT
== END 2020-06-26 13:46 | disposition home or self-care (01) | DRG 309 ==
LOC: M ED 19:57 → M ICU 21:44 → ENRESERV 22:25 → M ED 22:49
PROVIDERS: ADMIT Internal Medicine; ATTEND Internal Medicine
PROC: 5A2204Z Restoration of Cardiac Rhythm, Single (ICD-10-PCS; principal; 2020-06-25)
DX: I48.0 Paroxysmal atrial fibrillation (principal); I50.32 Chronic diastolic (congestive) heart failure; J44.9 Chronic obstructive pulmonary disease, unspecified; E66.9 Obesity, unspecified; R73.03 Prediabetes; L97.519 Non-pressure chronic ulcer of other part of right foot with unspecified severity; G47.33 Obstructive sleep apnea (adult) (pediatric); D50.9 Iron deficiency anemia, unspecified; Z79.899 Other long term (current) drug therapy; Z88.8 Allergy status to other drugs, medicaments and biological substances; Z68.32 Body mass index [BMI] 32.0-32.9, adult; Z87.891 Personal history of nicotine dependence; Z99.81 Dependence on supplemental oxygen

== ENCOUNTER 2024-04-02 06:59 | Day surgery (SDC) | payer MEDICARE ==
[~2024-04-02] VITALS: Ht 172.7 cm; Wt 79.9 kg
[~2024-04-02 06:59] MED LIST changes: +ALBU2.5V10 INH; +ANOR1AER; +ANOR1AER INH; +BAYE81TA10 PO; +CARB10TA6 PO; +COLA100C5 PO; +CYCLOPENTOLATE 1% OPHTH SOLN 2ML BTL OS SCH; +DILT300C21 PO; +DOXY-440 PO; +ELIQ5TAB PO; +FERR325T3 PO; +FLEC100T27 GT; -FLEC10TA GT; +FLURBIPROFEN 0.03% OPHTH SOLN 2.5 ML OS SCH; +FURO40TA2; +FURO40TA2 PO; +GABA-1635; +GABA-1635 PO; -GABA-283 PO; +GABA-284 PO; +GLIP5TAB17 PO; -K-TA10TA2 PO; +LEVO1TAB39 PO; +MAGN400T2 PO; +MECL-86; +MECL-86 PO; +PHENYLEPHRINE 2.5% OPHTH SOL 2ML OS SCH; +POTA-165 PO; +POTA10TA67 PO; +POTA1TAB23; +POTA1TAB23 PO; +TETRACAINE 0.5% OPHTH SOLN 4ML OS SCH; +THERTAB52 PO; +TRAM1TAB42 PO; -TRAM37.53 PO
[2024-04-02] MEDS ORDERED: LR 1,000 ML IV SCH (07:00)
[2024-04-02] MEDS: LIDOCAINE 1% SDV 5ML VIAL As Ordered ONE (12:23)
[2024-04-02] MEDS: CEFUROXIME 1MG/0.1ML INTRACAMERAL INJ As Ordered ONE (12:23)
[2024-04-02] MEDS ORDERED: fentaNYL 100 MCG/2 ML INJECTION As Ordered ONE (12:33)
[2024-04-02 12:42] VITALS: BP 110/51; TEMP 97.1; O2SAT 92
[2024-04-02] MEDS ORDERED: MIDAZOLAM INJ 2MG/2ML VIAL As Ordered ONE (13:07)
== END 2024-04-02 13:06 | disposition home or self-care (01) ==
LOC: M SDC 06:59
PROVIDERS: ATTEND Ophthalmology
DX: H25.9 Unspecified age-related cataract (principal); H21.81 Floppy iris syndrome; I48.91 Unspecified atrial fibrillation; E11.9 Type 2 diabetes mellitus without complications; Z88.8 Allergy status to other drugs, medicaments and biological substances; Z79.899 Other long term (current) drug therapy; Z87.891 Personal history of nicotine dependence
CPT/HCPCS: 66982; J0697; J2250; J3010; V2632

== ENCOUNTER → 2024-11-02 | Outpatient (REF) | payer MEDICARE ==
[~2024-11-02] MED LIST changes: -CYCLOPENTOLATE 1% OPHTH SOLN 2ML BTL OS SCH; -FLURBIPROFEN 0.03% OPHTH SOLN 2.5 ML OS SCH; -PHENYLEPHRINE 2.5% OPHTH SOL 2ML OS SCH; -TETRACAINE 0.5% OPHTH SOLN 4ML OS SCH
[2024-11-02 10:22] LABS: PLATELET COUNT, AUTOMATED 234 10^3/uL (150-450)
[2024-11-02 10:51] LABS: PSA SCREENING 0.58 NG/ML (< 4.00)
[2024-11-02 10:52] LABS: ESTIMATED AVERAGE GLUCOSE 143.0 MG/DL (60-110)
[2024-11-02 10:55] LABS: CALCIUM LEVEL 8.9 MG/DL (8.3-10.6); CARBON DIOXIDE LEVEL 31.0 MMOL/L (20-31); CHLORIDE LEVEL 98.0 MMOL/L (98-107); CREATININE FOR GFR 1.02 MG/DL (0.70-1.30); GLOMERULAR FILTRATION RATE 75.2 (>42); POTASSIUM SERUM 4.1 MMOL/L (3.5-5.1); SODIUM LEVEL 139.0 MMOL/L (136-145)
== END ==
LOC: SKLAB3 07:00
PROVIDERS: ATTEND Nurse Practitioner Adult Health
DX: N18.9 Chronic kidney disease, unspecified (principal); Z79.899 Other long term (current) drug therapy; Z12.5 Encounter for screening for malignant neoplasm of prostate
CPT/HCPCS: 36415; 80048; 83036; 84443; 85027; G0103

== ENCOUNTER → 2024-11-02 | Outpatient (REF) | payer MEDICARE | LOC: SKLAB3 14:22 | PROVIDERS: ATTEND Nurse Practitioner Adult Health | DX: R06.02 Shortness of breath (principal) ==

== ENCOUNTER → 2024-11-30 | Outpatient (CLI) | payer MEDICARE, MEDICAID | LOC: M RAD 14:17 | PROVIDERS: ATTEND Family Medicine | DX: M25.462 Effusion, left knee (principal) ==

== ENCOUNTER → 2024-11-30 | Outpatient (REF) | payer MEDICARE, MEDICAID ==
[2024-11-30 15:08] LABS: PLATELET COUNT, AUTOMATED 218 10^3/uL (150-450)
[2024-11-30 15:34] LABS: C REACTIVE PROTEIN QUANTITATIV 5.97 MG/DL (<1.0); CALCIUM LEVEL 9.1 MG/DL (8.3-10.6); CARBON DIOXIDE LEVEL 34.0 MMOL/L (20-31); CHLORIDE LEVEL 97.0 MMOL/L (98-107); CREATININE FOR GFR 1.1 MG/DL (0.70-1.30); GLOMERULAR FILTRATION RATE 68.7 (>42); POTASSIUM SERUM 3.8 MMOL/L (3.5-5.1); SODIUM LEVEL 140.0 MMOL/L (136-145)
== END ==
LOC: SKLAB3 13:23
PROVIDERS: ATTEND Family Medicine
DX: M25.562 Pain in left knee (principal); R60.0 Localized edema; M25.462 Effusion, left knee